=== PATIENT | male | born 1995 | race Caucasian/White ===

== ENCOUNTER → 2017-08-17 | Outpatient (CLI) | payer OTHER | END | disposition home or self-care (01) | LOC: C.RDSM 09:15 | PROVIDERS: ATTEND Orthopaedic Surgery Sports Medicine | DX: M25.569 Pain in unspecified knee (principal) ==

== ENCOUNTER → 2017-08-25 | Outpatient (CLI) | payer OTHER ==
--- NOTE | 2017-08-25 08:40 | DIAGNOSTIC IMAGING REPORT ---
L LOWER EXT JOINT WITHOUT CLINICAL HISTORY: M25.569 trauma. Pain. TECHNIQUE: Multiaxial MRI acquisition COMPARISON STUDY: None FINDINGS: Signal characteristics the osseous structures are in general unremarkable. Small bone cysts are identified the distal femoral metaphysis as well as posterior tibial metaphysis. These have benign characteristics. The collateral ligaments are intact. Anterior and posterior cruciate ligaments are intact. The patellofemoral joint is unremarkable. There is no evidence for chondromalacia patella. The medial and lateral patellar retinaculum are unremarkable. There is no joint effusion. No evidence for popliteal cyst. Medial meniscus is unremarkable in overall configuration and signal character. The lateral meniscus demonstrates a 5 mm meniscal cyst projecting from the anterior horn. There is a very small superficial tear of the superior surface of the anterior horn lateral meniscus. IMPRESSION: 1. 5 mm anterior meniscal cyst adjacent to the anterior horn lateral meniscus. 2. Very small superficial tear superior surface lateral meniscus. 3. Several small benign bone cysts of the femur as well as tibia. 4. Remainder of the study is unremarkable. The above report was generated using voice recognition software. It may contain grammatical, syntax or spelling errors. Electronically signed by: Real Reyez M.D. 08/25/2017 8:39 AM Dictated Date/Time: 08/25/2017 8:32 AM
== END | disposition home or self-care (01) ==
LOC: C.MRI 07:33
PROVIDERS: ATTEND Orthopaedic Surgery Sports Medicine
DX: M23.042 Cystic meniscus, anterior horn of lateral meniscus, left knee (principal); M85.662 Other cyst of bone, left lower leg